=== PATIENT | male | born 1945 | race Two or more races ===

== ENCOUNTER 2017-02-13 06:02 | Day surgery (SDC) | payer MEDICARE, MEDICAID ==
--- NOTE | 2017-02-08 17:04 | Pre-Procedure Note/Attestation ---
Pre-Procedure Note/Attestation Complete Prior to Procedure Planned Procedure: left Procedure Narrative: 1. CATARACT EXTRACTION WITH PHACO AND PC IOL IMPLANTATION, LEFT EYE. Indications for Procedure Pre-Operative Diagnosis: 1. CATARACT , LEFT EYE. . Attestation I attest that I discussed the nature of the procedure; its benefits; risks and complications; and alternatives (and the risks and benefits of such alternatives ), prior to the procedure, with the patient (or the patient's legal national account representative). I attest that, if there was a reasonable possibility of needing a blood transfusion, the patient (or the patient's legal national account representative) was given the [facility] of Health Services standardized written summary, pursuant to the [place] Blood Safety Act ([place] Health and Safety Code # 1645, as amended). I attest that I re-evaluated the patient just prior to the surgery and that there has been no change in the patient's H&P, except as documented below: LIZ KANG Feb 08, 2017 17:04
[~2017-02-13] VITALS: Ht 167.6 cm; Wt 86.2 kg
[2017-02-13] VITALS (8 sets, daily range): BP systolic 139–165; BP diastolic 71–99
[~2017-02-13 06:02] MED LIST: GLIPIZIDE5 MG ORAL; LOSARTAN POTASS25 MG ORAL; METFORMIN HCL1000 M1 ORAL; METOPROLOL ER-1 EACH PO; SIMVASTATIN20 MG ORAL; acetaZOLAMIDE 125mg tab ORAL ONE
[2017-02-13] MEDS: Gatifloxacin Opth Solution 0.5% LEFT EYE SCH ×3 (06:10→06:34)
[2017-02-13] MEDS ORDERED: Tropicamide 1% Opth Soln ONE (06:16)
[2017-02-13] MEDS ORDERED: Phenylephrine 10% Opth Soln 5ml ONE (06:16)
[2017-02-13] MEDS ORDERED: Akten 3.5% 1ml Btl ONE (06:16)
[2017-02-13] MEDS ORDERED: Diclofenac Sod 0.1% Op Soln ONE (06:16)
[2017-02-13] MEDS ORDERED: Gatifloxacin Opth Solution 0.5% ONE (06:16)
[2017-02-13] MEDS: Phenylephrine 10% Opth Soln 5ml LEFT EYE SCH ×3 (06:23→06:40)
[2017-02-13] MEDS: Tropicamide 1% Opth Soln LEFT EYE SCH ×3 (06:23→06:40)
[2017-02-13] MEDS: Diclofenac Sod 0.1% Op Soln LEFT EYE SCH ×3 (06:23→06:40)
[2017-02-13] MEDS: Akten 3.5% 1ml Btl LEFT EYE SCH ×3 (06:23→06:40)
[2017-02-13] MEDS ORDERED: BSS 15ml BTL ONE (07:03)
[2017-02-13] MEDS ORDERED: Povidone-Iodine 5% opth solution ONE (07:03)
[2017-02-13] MEDS ORDERED: Sodium Hyaluronate 10 mg/ml 0.85ml ONE ×2 (07:03→10:01)
[2017-02-13] MEDS ORDERED: BSS 500ml btl ONE (07:03)
[2017-02-13] MEDS ORDERED: LR 1000ml ONE (08:30)
[2017-02-13] MEDS ORDERED: Propofol 10mg/ml 20ml IV ONE (08:30)
[2017-02-13] MEDS ORDERED: NS Irrig 1000ml ONE (08:30)
[2017-02-13] MEDS ORDERED: Midazolam 2mg/2ml Inj ONE (08:30)
[2017-02-13] MEDS ORDERED: Sterile Water Irrig 1000ml IRRIG ONE (08:30)
[2017-02-13] MEDS ORDERED: fentaNYL 100 mcg/2 mL IV ONE (08:30)
[2017-02-13] MEDS ORDERED: LR 1000ml 1,000 ML IVLG SCH (08:48)
--- NOTE | 2017-02-13 08:48 | Anethesia Preoperative Eval ---
Anesthesia Pre-op PMH/ROS General Date of Evaluation: Feb 13, 2017 Time of Evaluation: 08:20 Anesthesiologist: Regina ASA Score: ASA 3 Mallampati Score Class I : Soft palate, uvula, fauces, pillars visible Class II: Soft palate, uvula, fauces visible Class III: Soft palate, base of uvula visible Class IV: Only hard plate visible Mallampati Classification: Class III Surgeon: Jaclyn Diagnosis: L eye cataract Surgical Procedure: L eye cataract exytracton Anesthesia History: none Social History: current smoker Family History: no anesthesia problems Allergies: Coded Allergies: No Known Allergies (Unverified , 02/13/17) Medications: see eMAR Past Medical History Cardiovascular: Reports: HTN, Denies: CAD, [place], arrhythmia, other, valve dz Pulmonary: Reports: COPD - mild , Denies: WILVER, asthma, other Gastrointestinal/Genitourinary: Reports: CRI - kidney stones, elevated Creatinin, GERD Neurologic/Psychiatric: Denies: CVA, TIA, dementia, depression/anxiety, other Endocrine: Reports: DM - on pills, Denies: hypothyroidism, other, steroids HEENT: Reports: cataract (L), cataract (R), Denies: [place] (L), [place] (R), glaucoma, other Hematology/Immune: Denies: DVT, anemia, bleeding disorder, other Musculoskeletal/Integumentary: Denies: DDD, DJD, OA, RA, edema, other Other: other - overweight PMH Narrative: as above PSxH Narrative: kidney stones Anesthesia Pre-op Phys. Exam Physician Exam Last Vital Signs Date Time Temp Pulse Resp B/P Pulse Ox O2 Delivery O2 Flow Rate FiO2 02/13/17 06:38 97.7 71 18 148/71 97 Room Air Constitutional: NAD Cardiovascular: RRR, no M/R/G Respiratory: CTA Gastrointestinal: S/NT/ND Airway Exam Mallampati Score: Class II MO: full Neck: short ROM: limited Teeth: missing Dentures: lower, upper Anesthesia Pre-op A/P Labs see chart Studies Pre-op Studies: EKG - NSR Risk Assessment & Plan Assessment: ASA 3 Plan: MAC Status Change Before Surgery: No Pre-Antibiotics Drug: none CHRIS CUMMINS M.D. Feb 13, 2017 08:48
[2017-02-13] MEDS ORDERED: DiphenhydrAMINE 50mg/ml Inj IVP PRN (09:00)
[2017-02-13] MEDS ORDERED: fentaNYL 100 mcg/2 mL IV PRN (09:00)
--- NOTE | 2017-02-13 09:12 | Discharge Summary ---
Discharge Summary Discharge Summary Discharge Summary DATE OF ADMISSION:02/13/2017 DATE OF DISCHARGE:02/13/2017 REASON FOR HOSPITALIZATION: Cataract, left eye SURGERY PERFORMED: Cataract extraction with phaco and PC IOL implantation, left eye CONDITION IN THE HOSPITAL:The patient tolerated the surgery without complications. DISCHARGE CONDITION: The patient was stable at discharge. DISCHARGE MEDICATIONS: 1. Vigamox eye drops one drop q.i.d, left eye 2. Prednisolone one drop q.i.d, left eye 3. Acular eye drop, one drop qid, left eye. POSTOPERATIVE ORDERS: The patient has to rest at home. No bending, No lifting, No watching Television tonight. POSTOPERATIVE FOLLOW UP: The patient will be followed in my office tomorrow morning at 7 o'clock. LIZ KANG Feb 13, 2017 09:12
--- NOTE | 2017-02-13 09:15 | Brief Operative Note ---
Immediate Post Operative Note Operative Note Chief Complaint: Blurry vision, left eye. difficulty driving and reading, Pre-op Diagnosis: 1. CATARACT , LEFT EYE. . Procedure: Cataract extraction with phaco and PC IOl implantation, left eye Post-op Diagnosis: same as pre-op Surgeon: Liz Anaya MD. Laborer Golf Course: None Additional Surgeons: None Anesthesiologist: Dr. Tapia Anesthesia: MAC Specimen: none Complications: none Condition: stable Estimated Blood Loss: none Drains: none Implant(s) used?: Yes - Monofocal PC IOL implanted in the left eye without complication LIZ ANAYA Feb 13, 2017 09:15
[2017-02-13] MEDS ORDERED: EPINEPHrine 1mg/1ml Amp ONE (10:02)
[2017-02-13] MEDS ORDERED: Dexamethasone 4mg/ml vial ONE (10:02)
[2017-02-13] MEDS ORDERED: Lidocaine 1% MPF 10mg/ml 5ml ONE (10:02)
--- NOTE | 2017-02-13 11:01 | Immediate Post-Op Evaluation ---
Immediate Post-Op Evalulation Immediate Post-Op Evalulation Procedure: L eye cataract extraction with IOL Date of Evaluation: Feb 13, 2017 Time of Evaluation: 09:11 IV Fluids: 200 Blood Products: none Estimated Blood Loss: none Urinary Output: none Blood Pressure Systolic: 164 Blood Pressure Diastolic: 89 Pulse Rate: 64 Respiratory Rate: 20 O2 Sat by Pulse Oximetry: 99 Temperature (Fahrenheit): 97.5 Pain Score (1-10): 2 Nausea: No Vomiting: No Complications none Patient Status: awake, patent, none Hydration Status: adequate CHRIS CUMMINS M.D. Feb 13, 2017 11:01
--- NOTE | 2017-02-13 11:02 | 48 Hour Post Anesthesia Eval ---
Post Anesthesia Evaluation Procedure: L eye cataract extraction with IOL Date of Evaluation: Feb 13, 2017 Time of Evaluation: 11:01 Blood Pressure Systolic: 158 0: 72 Pulse Rate: 65 Respiratory Rate: 18 Temperature (Fahrenheit): 97.6 O2 Sat by Pulse Oximetry: 99 Airway: patent Nausea: No Vomiting: No Pain Intensity: 1 Hydration Status: adequate Cardiopulmonary Status: stable Mental Status/LOC: patient returned to baseline Follow-up Care/Observations: N/a Post-Anesthesia Complications: none Follow-up care needed: ready to discharge CHRIS CUMMINS M.D. Feb 13, 2017 11:02
--- NOTE | 2017-02-14 21:40 | Operative Note - Dictated ---
DATE OF OPERATION: 02/13/2017 NOTE: POOR AUDIO QUALITY FACILITY: [facility]. SURGEON: Garret Anaya M.D. TIN CAN LABORER: None. ANESTHESIOLOGIST: Sharif Tapia M.D. ANESTHESIA: Monitored anesthesia care (MAC). PREOPERATIVE DIAGNOSIS: Cataract, left eye. POSTOPERATIVE DIAGNOSIS: Cataract, left eye. SURGERY PERFORMED: Cataract extraction with phacoemulsification and posterior chamber intraocular lens implantation in the left eye. INDICATION FOR SURGERY: The patient is a 71-year-old gentleman with history of diabetes mellitus, hypertension, hypercholesterolemia, chronic kidney disease, vitamin D deficiency, degeneration of the lumbosacral intervertebral disk, low back pain, light cigarette smoker, . The patient is a smoker . No allergy to medications. The patient is taking medications including , vitamin B, calcium, . diabetes is not under control. He is complaining of blurry vision in the left eye. On examination of the left eye, the cornea is clear. Anterior chamber is clean and quiet. Pupillary reflex is normal. There is no RAPD. There is 4+ nuclear sclerosis and 2+ cortical cataract in the left eye. Funduscopy shows normal optic disc, normal macula, and periphery retina is flat. To improve his vision in the left eye, the cataract has to be removed and posterior chamber intraocular lens has to be implanted. INFORMED CONSENT: The nature of the surgery, risks, benefits, alternatives, and potential complications were all explained in detail to the patient. The potential complications including, but not limited to bleeding, infection, posterior capsular rupture, lens subluxation, flat anterior chamber, iris prolapse, uveitis, corneal edema, macular edema, endophthalmitis, retinal detachment, loss of vision, and even loss of the eye were all explained in detail to the patient in his language, Farsi. They voiced understanding and accepted all the complications. The alternatives including accommodating lens, multifocal lens, toric lens, and conventional cataract surgery with limbal relaxing incision for treatment of astigmatism were all explained in detail to the patient, voiced understanding. The patient elected to have only conventional cataract surgery and the acceptance to wear glasses after surgery. I repeated the three times to the patient and he did yes. He accepted to wear glasses after surgery . Then, he signed the consent form, which is in the chart. DESCRIPTION OF SURGERY AND FINDINGS: Following that, the patient was taken to the operation room in a stable condition. Lidocaine gel, Akten 3.5% were applied to the conjunctiva of the left eye. Following that, IV sedation was given by the anesthesiologist, Dr. Tapia. After adequate anesthesia and sedation had been achieved, the left eye was prepped and draped in a sterile fashion for intraocular surgery. Following that, a speculum was placed in the left eye. Following that, using a Super Sharp knife, a clear corneal side port was created. Following that, 1% lidocaine without preservative (MPF) was injected into the anterior chamber. Following that, viscoelastic agent, Healon was injected into the anterior chamber again. Following that, using a 2.8 mm keratome, corneal temporal side keratotomy of clear cornea was created. Following that, the viscoelastic agent was injected into the anterior chamber again. Following that, the vision blue was injected under the viscoelastic agent to stain the anterior capsule of the lens. Following that, clear fresh viscoelastic agent was injected into the anterior chamber again. Under the viscoelastic agent, an anterior capsulotomy was performed in the fashion of capsulorrhexis beautifully. Following that, all viscoelastic agent was removed from the anterior chamber. Following that, using irrigation aspiration unit and using balanced salt solution, hydrodissection and hydrodelineation was performed and the nucleus was freed. Following that, whole viscoelastic agent was removed from the anterior chamber. Following that, clear fresh viscoelastic agent, Healon was injected into the anterior chamber to protect the endothelium of the cornea. Following that, using phacoemulsification machine in the fashion of horizontal chop, the nucleus was removed in toto. Following that, using irrigation aspiration unit, whole cortical material was removed from the capsular bag and the capsular bag was polished. Following that, the capsular bag was filled with viscoelastic agent, Healon. Following that, a +20 diopter [id number] holdable PC IOL was injected into the capsular bag. Using a Sinskey hook, the lens was manipulated within the proper position. Following that, the viscoelastic agent was removed from the anterior and posterior part of the lens. Following that, the anterior chamber was filled with viscoelastic agent, Healon. Following that, a +3 diopter ZCB lens with serial number #[id number] was injected into the capsular bag. Using a Sinskey hook, the lens was manipulated within the proper position. Following that, the whole viscoelastic agent was removed from the anterior and posterior part of the lens and the anterior chamber was filled with balanced salt solution and the wound was hydrated with balanced salt solution. Following that, the wound was checked for leakage and there was no leakage. Vigamox eye drops were applied to the conjunctiva of the left eye. The patient tolerated the surgery without complications. At the end of the surgery, the eye was patched with a clear sterile fenestrated shield. Following that, the patient was transferred to the recovery room. In the recovery room, 125 mg Diamox was given by mouth stat. Postoperative orders and directions were given to the patient. The patient will be discharged home upon stabilization. The patient will be followed in my office tomorrow morning at 10 a.m. Garret Anaya M.D. DR: CEM JOB#: [id number] CC:
== END 2017-02-13 10:45 | disposition home or self-care (01) ==
LOC: SUR 06:02
DX: H25.12 Age-related nuclear cataract, left eye (principal); H25.012 Cortical age-related cataract, left eye; E11.22 Type 2 diabetes mellitus with diabetic chronic kidney disease; I12.9 Hypertensive chronic kidney disease with stage 1 through stage 4 chronic kidney disease, or unspecified chronic kidney disease; N18.9 Chronic kidney disease, unspecified; Z79.84 Long term (current) use of oral hypoglycemic drugs; E78.5 Hyperlipidemia, unspecified; M51.17 Intervertebral disc disorders with radiculopathy, lumbosacral region; E66.9 Obesity, unspecified; Z68.30 Body mass index [BMI] 30.0-30.9, adult; M53.3 Sacrococcygeal disorders, not elsewhere classified; E55.9 Vitamin D deficiency, unspecified; J44.9 Chronic obstructive pulmonary disease, unspecified; F17.210 Nicotine dependence, cigarettes, uncomplicated; K21.9 Gastro-esophageal reflux disease without esophagitis; Z88.8 Allergy status to other drugs, medicaments and biological substances; Z79.82 Long term (current) use of aspirin; Z79.899 Other long term (current) drug therapy
CPT/HCPCS: 66984; 82962; J0171; J1100; J2250; J2704; J3010; J7120; V2632; 94003; 94150

== ENCOUNTER 2017-02-20 06:26 | Day surgery (SDC) | payer MEDICARE, MEDICAID ==
--- NOTE | 2017-02-15 16:57 | Pre-Procedure Note/Attestation ---
Pre-Procedure Note/Attestation Complete Prior to Procedure Planned Procedure: right Procedure Narrative: 1. CATARACT EXTRACTION WITH PHACO AND PC IOL IMPLANTATION, RIGHT EYE. Indications for Procedure Pre-Operative Diagnosis: 1. CATARACT ,RIGHT EYE. Attestation I attest that I discussed the nature of the procedure; its benefits; risks and complications; and alternatives (and the risks and benefits of such alternatives ), prior to the procedure, with the patient (or the patient's legal field sales representative). I attest that, if there was a reasonable possibility of needing a blood transfusion, the patient (or the patient's legal field sales representative) was given the [facility] of Health Services standardized written summary, pursuant to the [place] Blood Safety Act ([place] Health and Safety Code # 1645, as amended). I attest that I re-evaluated the patient just prior to the surgery and that there has been no change in the patient's H&P, except as documented below: LIZ KANG Feb 15, 2017 16:57
[2017-02-20] VITALS (7 sets, daily range): BP systolic 129–160; BP diastolic 79–86
[~2017-02-20] VITALS: Ht 172.7 cm; Wt 89.8 kg
[2017-02-20] MEDS ORDERED: Tropicamide 1% Opth Soln ONE (06:48)
[2017-02-20] MEDS ORDERED: Phenylephrine 10% Opth Soln 5ml ONE (06:48)
[2017-02-20] MEDS ORDERED: Diclofenac Sod 0.1% Op Soln ONE (06:48)
[2017-02-20] MEDS ORDERED: Akten 3.5% 1ml Btl ONE (06:48)
[2017-02-20] MEDS ORDERED: Gatifloxacin Opth Solution 0.5% ONE (06:48)
[2017-02-20] MEDS: Diclofenac Sod 0.1% Op Soln RIGHT EYE SCH ×3 (06:50→07:10)
[2017-02-20] MEDS: Phenylephrine 10% Opth Soln 5ml RIGHT EYE SCH ×3 (06:52→07:09)
[2017-02-20] MEDS: Akten 3.5% 1ml Btl RIGHT EYE SCH ×3 (06:52→07:10)
[2017-02-20] MEDS: Tropicamide 1% Opth Soln RIGHT EYE SCH ×3 (06:52→07:09)
[2017-02-20] MEDS: Gatifloxacin Opth Solution 0.5% RIGHT EYE SCH ×3 (06:53→07:09)
[2017-02-20] MEDS ORDERED: Sterile Water Irrig 1000ml IRRIG ONE (08:30)
[2017-02-20] MEDS ORDERED: Midazolam 2mg/2ml Inj ONE (08:30)
[2017-02-20] MEDS ORDERED: NS Irrig 1000ml ONE (08:30)
[2017-02-20] MEDS ORDERED: LR 1000ml ONE (08:30)
[2017-02-20] MEDS ORDERED: LR 1000ml 1,000 ML IVLG SCH (08:49)
--- NOTE | 2017-02-20 08:53 | Anethesia Preoperative Eval ---
Anesthesia Pre-op PMH/ROS General Date of Evaluation: Feb 20, 2017 Time of Evaluation: 08:20 Anesthesiologist: Stone ASA Score: ASA 3 Mallampati Score Class I : Soft palate, uvula, fauces, pillars visible Class II: Soft palate, uvula, fauces visible Class III: Soft palate, base of uvula visible Class IV: Only hard plate visible Mallampati Classification: Class II Surgeon: Jaclyn Diagnosis: Cataract Surgical Procedure: Extraction of cataract with IOL right eye Family History: no anesthesia problems Allergies: Coded Allergies: No Known Allergies (Unverified , 02/13/17) Medications: see eMAR Past Medical History Cardiovascular: Reports: HTN, Denies: CAD, [place], arrhythmia, other, valve dz Pulmonary: Denies: COPD, [place], asthma, other Gastrointestinal/Genitourinary: Reports: other - Kidney stones, Denies: CRI, ESRD, GERD Neurologic/Psychiatric: Denies: CVA, TIA, dementia, depression/anxiety, other Endocrine: Reports: DM, Denies: hypothyroidism, other, steroids HEENT: Reports: cataract (L), cataract (R) Hematology/Immune: Denies: DVT, anemia, bleeding disorder, other Musculoskeletal/Integumentary: Denies: DDD, DJD, OA, RA, edema, other PMH Narrative: HTN, DM, Renal lithiasis PSxH Narrative: Removal of kidney stones Anesthesia Pre-op Phys. Exam Physician Exam Last Vital Signs Date Time Temp Pulse Resp B/P Pulse Ox O2 Delivery O2 Flow Rate FiO2 02/20/17 06:56 98.0 71 18 160/79 99 Room Air Constitutional: NAD Neurologic: CN 2-12 intact Cardiovascular: RRR, no M/R/G Respiratory: CTA Gastrointestinal: S/NT/ND Airway Exam Mallampati Score: Class II MO: full ROM: full Dentures: lower, upper Anesthesia Pre-op A/P Studies Pre-op Studies: EKG - NSR Risk Assessment & Plan Assessment: Cataract right eye Plan: MAC Status Change Before Surgery: No Pre-Antibiotics Drug: None HUMAIRA HOUGH M.D. Feb 20, 2017 08:53
--- NOTE | 2017-02-20 08:55 | Immediate Post-Op Evaluation ---
Immediate Post-Op Evalulation Immediate Post-Op Evalulation Procedure: Extraction of cataract with IOL right eye Date of Evaluation: Feb 20, 2017 Time of Evaluation: 09:21 IV Fluids: 650 Blood Pressure Systolic: 153 Blood Pressure Diastolic: 81 Pulse Rate: 72 Respiratory Rate: 16 O2 Sat by Pulse Oximetry: 99 Temperature (Fahrenheit): 97.2 Pain Score (1-10): 0 Nausea: No Vomiting: No Complications No complication Patient Status: awake, patent, none Hydration Status: adequate Drug: None HUMAIRA HOUGH M.D. Feb 20, 2017 08:55
[2017-02-20] MEDS ORDERED: LR 1000ml 1,000 ML IV SCH (09:00)
[2017-02-20] MEDS ORDERED: fentaNYL 100 mcg/2 mL IV PRN (09:00)
[2017-02-20] MEDS ORDERED: BSS 500ml btl ONE (09:13)
[2017-02-20] MEDS ORDERED: Lidocaine 1% MPF 10mg/ml 5ml ONE (09:13)
[2017-02-20] MEDS ORDERED: Dexamethasone 4mg/ml vial ONE (09:13)
[2017-02-20] MEDS ORDERED: Sodium Hyaluronate 10 mg/ml 0.85ml ONE (09:14)
[2017-02-20] MEDS ORDERED: EPINEPHrine 1mg/1ml Amp ONE (09:14)
[2017-02-20] MEDS ORDERED: BSS 15ml BTL ONE (09:14)
[2017-02-20] MEDS ORDERED: Povidone-Iodine 5% opth solution ONE (09:14)
--- NOTE | 2017-02-20 09:14 | Discharge Summary ---
Discharge Summary Discharge Summary Discharge Summary DATE OF ADMISSION: 02/20/2017 DATE OF DISCHARGE: 02/20/2017 REASON FOR HOSPITALIZATION: Cataract right eye SURGERY PERFORMED: Cataract extraction with phaco and PC IOL implantation, right eye CONDITION IN THE HOSPITAL:The patient tolerated the surgery without complications. DISCHARGE CONDITION: The patient was stable at discharge. DISCHARGE MEDICATIONS: 1. Vigamox eye drops one drop q.i.d, right eye 2. Prednisolone one drop q.i.d, right eye 3. Acular eye drop one drop q4hour, right eye POSTOPERATIVE ORDERS: The patient has to rest at home. No bending, No lifting, No watching Television tonight. POSTOPERATIVE FOLLOW UP: The patient will be followed in my office tomorrow morning at 7 o'clock. LIZ KANG Feb 20, 2017 09:14
--- NOTE | 2017-02-20 09:16 | 48 Hour Post Anesthesia Eval ---
Post Anesthesia Evaluation Procedure: Extraction of cataract with IOL right eye Date of Evaluation: Feb 20, 2017 Time of Evaluation: 09:45 Blood Pressure Systolic: 155 0: 83 Pulse Rate: 71 Respiratory Rate: 18 O2 Sat by Pulse Oximetry: 98 Nausea: No Vomiting: No Pain Intensity: 0 Hydration Status: adequate Cardiopulmonary Status: Stable Mental Status/LOC: patient returned to baseline Follow-up Care/Observations: As per surgery Post-Anesthesia Complications: No anesthetic complication Follow-up care needed: N/A HUMAIRA HOUGH M.D. Feb 20, 2017 09:16
--- NOTE | 2017-02-20 09:17 | Brief Operative Note ---
Immediate Post Operative Note Operative Note Chief Complaint: Blurry vision,difficulty driving and reading, right eye Pre-op Diagnosis: 1. CATARACT ,RIGHT EYE. Procedure: Cataract extraction with phaco and PC IOL implantation,right eye Post-op Diagnosis: same as pre-op Surgeon: Liz Anaya MD. Youth Development Specialist: None Additional Surgeons: None Anesthesiologist: Dr. Ritter Anesthesia: MAC Specimen: none Complications: none Condition: stable Estimated Blood Loss: none Drains: none Implant(s) used?: Yes - Monofocal PC IOL implanted in the right eye without complication LIZ ANAYA Feb 20, 2017 09:16
--- NOTE | 2017-02-20 13:00 | Operative Note - Dictated ---
DATE OF OPERATION: 02/20/2017 FACILITY: [facility]. SURGEON: Garret Anaya M.D. OUTSIDE DEALER SALES REPRESENTATIVE: None. ANESTHESIOLOGIST: Clive Ritter M.D. ANESTHESIA: Monitored anesthesia care (MAC). PREOPERATIVE DIAGNOSIS: Cataract of the right eye. POSTOPERATIVE DIAGNOSIS: Cataract of the right eye. SURGERY PERFORMED: Cataract extraction with phacoemulsification and posterior chamber intraocular lens implantation in the right eye. INDICATION FOR SURGERY: The patient is a 71-year-old gentleman with history of hypertension, hypercholesterolemia, and hypertriglyceridemia. The patient had chronic kidney disease. The patient had diabetes type 2 and low back pain and high cigarette smoke, hypertension. He is taking a lot of medications that include Gemfibrozil 600 mg, glipizide 5 mg, losartan 25 mg, metformin 1000 mg, metoprolol 25 mg, and simvastatin 20 mg. He is complaining of blurry vision in the right eye. He had had cataract surgery last week with good result and he is happy with the result. On examination of the right eye, the cornea is clear. Anterior chamber is clean and quiet. Pupillary reflex is normal. There is no RAPD. There is 4+ nuclear sclerosis and 2+ cortical cataract. Funduscopy showed normal optic disc, normal macula, and periphery retina if flat. To improve his vision in the right eye, the cataract has to be removed and posterior chamber intraocular lens has to be implanted. INFORMED CONSENT: The nature of the surgery, risks, benefits, potential complications, and alternatives were explained in detail to the patient in his language, Farsi. The potential complications including, but not limited to bleeding, infection, posterior capsular rupture, lens subluxation, flat anterior chamber, iris prolapse, uveitis, corneal edema, macular edema, retinal detachment, and loss of vision due to endophthalmitis and were all explained in detail to the patient. The patient voiced understanding and accepted all the complications. The alternatives including accommodating lenses, multifocal lenses, toric lens, and conventional cataract surgery with limbal relaxing incision for treatment of astigmatism were all explained in detail to the patient who voiced understanding. The patient elected to have only conventional cataract surgery and he accepted to wear glasses after surgery for distance and near both. The patient knows about the issue and accepted the issue. The patient then signed the consent form, which is in the chart. DESCRIPTION OF SURGERY AND FINDINGS: Following that, the patient was taken to the operation room in stable condition. Akten 3.5%, lidocaine get was applied to the conjunctiva of the right eye. IV sedation was given by the anesthesiologist, Dr. Ritter. After adequate anesthesia and sedation had been achieved, the right eye was prepped and draped in a sterile fashion for intraocular surgery. Following that, a speculum was placed in the right eye. Following that, using a Super Sharp knife a clear corneal side port was created. Following that 1% lidocaine without preservative (MPF) was injected into the anterior chamber. The viscoelastic agent Healon was injected into the anterior chamber again. Following that Vision blue was injected under the viscoelastic agent to stain the anterior capsule. Following that a clear viscoelastic agent was injected. Anterior capsulotomy was performed in the fashion of capsulorrhexis beautifully. Following that, all viscoelastic agent was removed from the anterior chamber. Following that with the balanced salt solution, hydrodissection and hydrodelineation was performed and the nucleus was freed. Following that, viscoelastic was injected into the anterior chamber to protect the endothelium of the cornea. Following that, using the phacoemulsification machine in the fashion of horizontal chop, the nucleus was removed in total. Following that, the cortical material was removed from irrigation aspiration unit and the capsular bag was polished. Following that, the capsular bag was filled with viscoelastic agent Healon. Following that, a +20.5 diopter ZCB00 with serial number [id number] was injected into the capsular bag. Using a Sinskey hook, the lens was manipulated and put in the proper position. Following that, the viscoelastic was removed from the anterior and posterior part of the lens and the anterior chamber was filled with balanced salt solution and the wound was hydrated with balanced salt solution. Following that, the wound was checked for leakage. There was no leakage. The patient tolerated the surgery without complications. At the end of this visit, the eye was patched with a clear sterile fenestrated shield. Following that the patient was transferred to the recovery room. In the recovery room, 125 mg Diamox was given by mouth stat. Postoperative orders and directions were given to the patient. The patient will be discharged home upon stabilization. The patient will be followed tomorrow in my office at 7 a.m. Garret Anaya M.D. DR: DONALD JOB#: [id number] CC:
== END 2017-02-20 10:20 | disposition home or self-care (01) ==
LOC: SUR 06:26
DX: H25.11 Age-related nuclear cataract, right eye (principal); H25.011 Cortical age-related cataract, right eye; I10 Essential (primary) hypertension; E11.9 Type 2 diabetes mellitus without complications; Z79.84 Long term (current) use of oral hypoglycemic drugs; E78.00 Pure hypercholesterolemia, unspecified; E78.1 Pure hyperglyceridemia; F17.210 Nicotine dependence, cigarettes, uncomplicated; M54.5 Low back pain; Z87.442 Personal history of urinary calculi
CPT/HCPCS: 82962; 94003; 94150; J2250